=== PATIENT | male | born 1975 | race Caucasian/White ===

== ENCOUNTER → 2018-02-15 12:54 | Outpatient (CLI) | payer MEDICAID, SELFPAY ==
--- NOTE | 2018-02-15 13:00 | CT_ITS ---
STUDY: CTA CHEST REASON FOR EXAM: Male, 42 years old. Thoracic aortic aneurysm RADIATION DOSAGE (If Supplied By Facility): CTDIvol = ( 15.07 ) mGy, DLP = ( 740.91 ) mGycm TECHNIQUE: The examination was performed with the intravenous administration of 100ML ml of Isovue 300 contrast material. Post-processing of the angiographic images was performed, with multiplanar reformation and 3D reconstruction. Individualized dose optimization techniques were used for this CT. COMPARISON: None. FINDINGS: There are mild emphysematous changes noted in the lungs. There are no filling defects within the pulmonary arteries to suggest pulmonary embolus. There is a 4 mm nodule in the right upper lobe adjacent to the azygos vein (image 37 series 2). There are no additional pulmonary nodules or masses. There are no pulmonary infiltrates or pleural effusions. There is no pneumothorax. There is no evidence of thoracic aortic dissection. There is a 3.7 x 3.5 x 3.1 cm saccular aneurysm arising from the proximal descending thoracic aorta. The thoracic aorta is otherwise normal in caliber. The heart and pericardium are within normal limits. There are coronary artery calcifications noted. There is no thoracic lymphadenopathy. Images through the upper abdomen demonstrate fatty infiltration of the liver. There are no destructive osseous lesions. CT/CTA Chest W/WO Contrast IMPRESSION: 3.7 x 3.5 x 3.1 cm saccular aneurysm arising from the proximal descending thoracic aorta. No evidence of pulmonary embolus. Mild emphysema. 4 mm nodule in the right lung. A follow-up CT in 6 months is recommended. Coronary artery disease. Fatty liver. Electronically Signed: Hung Hook, at 19:53 EDT Tel , Service support ,
== END ==
PROVIDERS: Family Provider Student in an Organized Health Care Education/Training Program; PCP Student in an Organized Health Care Education/Training Program; Visit Provider Student in an Organized Health Care Education/Training Program
DX: I71.2 Thoracic aortic aneurysm, without rupture (principal); S06.0X0A Concussion without loss of consciousness, initial encounter
CPT/HCPCS: 71275; Q9967

== ENCOUNTER → 2018-06-06 11:48 | Outpatient (CLI) | payer MEDICAID, SELFPAY ==
[2018-06-06 12:31] LABS: Amphetamine Urine VISTA NEGATIVE (<1000 ng/mL); Barbiturate Urine VISTA NEGATIVE (< 200 ng/mL); Benzodiazepine Urine VISTA NEGATIVE (< 200 ng/mL); Cocaine Urine VISTA NEGATIVE (< 300 ng/mL); Ecstacy Urine VISTA NEGATIVE (< 500 ng/mL); Methadone Urine VISTA NEGATIVE (< 300 ng/mL); PCP Urine VISTA NEGATIVE (< 25 ng/mL); THC Urine VISTA NEGATIVE (< 50 ng/mL); Vista UDS pH Range 5
== END ==
PROVIDERS: Family Provider Student in an Organized Health Care Education/Training Program; PCP Student in an Organized Health Care Education/Training Program; Referring Provider Anesthesiology Pain Medicine; Visit Provider Anesthesiology Pain Medicine
DX: F11.20 Opioid dependence, uncomplicated (principal)
CPT/HCPCS: 80307

== ENCOUNTER 2019-05-23 09:31 | Day surgery (SDC) | payer MEDICARE, MEDICAID, SELFPAY ==
[2019-05-23 10:19] VITALS: BP 156/83; PULSE 91; RESP 18; TEMP 37.2; O2SAT 100; BMI 36.3
[2019-05-23] MEDS: Lactated Ringers 1,000 ML 100 ML IV ×2 (11:00→13:10)
--- NOTE | 2019-05-23 11:00 | RAD_ITS ---
PROCEDURE: DATE OF EXAMINATION: 05/23/2019 INDICATION: Male, 44 years old. Fluoroscopy for pain pump insertion PHYSICIAN: Dr. Vann FLUOROSCOPY TIME (if supplied): (0:10) minutes/seconds RADIATION DOSAGE (If Supplied By Facility): 1 fluoroscopy filming and 3 seconds of fluoroscopy A single lateral C-arm fluoroscopic image was performed showing a metallic lead in the posterior spinal canal of the lumbar spine with pedicle screws in place at the L4 level from a spinal fusion lower lumbar spine. RAD/Spine 1 View Any Level IMPRESSION: A metallic lead from a spinal fusion is noted of the lower lumbar spine. Electronically Signed: Rashaun Alcala, at 14:07 EDT Tel , Service support ,
[2019-05-23] MEDS: Cefazolin 2 GM in 0.9% Normal Saline 100 ML IV (11:38)
[2019-05-23] MEDS: 0.9% Normal Saline (Pres. free 10 ML Vial (12:00)
[2019-05-23] MEDS: Bupivacaine 0.25% 30 ML Vial (12:00)
[2019-05-23 12:50] VITALS: BP 156/83; BP 169/98; PULSE 115; RESP 16; TEMP 36.7; O2SAT 98
[2019-05-23 13:00] VITALS: BP 156/83; BP 162/104; PULSE 102; RESP 16; O2SAT 97
[2019-05-23 13:15] VITALS: BP 144/75; BP 156/83; PULSE 98; RESP 16; O2SAT 97
[2019-05-23 13:30] VITALS: BP 135/75; BP 156/83; PULSE 100; RESP 16; TEMP 36.8; O2SAT 96
[2019-05-23 14:15] VITALS: BP 156/83
== END 2019-05-23 14:35 | disposition home or self-care (01) ==
LOC: SDC 09:34 → AC 09:56
PROVIDERS: Family Provider Student in an Organized Health Care Education/Training Program; PCP Student in an Organized Health Care Education/Training Program; Referring Provider Anesthesiology Pain Medicine; Visit Provider Anesthesiology Pain Medicine
PROC: (CPT 62362; principal; 2019-05-23 10:45)
DX: G89.4 Chronic pain syndrome (principal); M96.1 Postlaminectomy syndrome, not elsewhere classified; M54.17 Radiculopathy, lumbosacral region; M51.37 Other intervertebral disc degeneration, lumbosacral region; M19.90 Unspecified osteoarthritis, unspecified site; I10 Essential (primary) hypertension; Z79.891 Long term (current) use of opiate analgesic; Z87.891 Personal history of nicotine dependence
CPT/HCPCS: 00300; 62362; 72020; 76000; J7120; J2274; J2405; J3490

== ENCOUNTER → 2022-06-21 | Outpatient (CLI) | payer MEDICARE, MEDICAID, SELFPAY ==
--- NOTE | 2022-06-21 14:06 | CT_ITS ---
STUDY: CT LUMBAR SPINE WITHOUT CONTRAST REASON FOR EXAM: Male, 47 years old. M96.1 RADIATION DOSAGE (If Supplied By Facility): CTDIvol = ( 41.81 ) mGy, DLP = ( 1580.91 ) mGycm TECHNIQUE: The patient was scanned in a multi detector CT scanner. High resolution transaxial imaging was performed. Images were obtained from to . Sagittal and coronal images were reconstructed. Individualized dose optimization techniques were used for this CT. COMPARISON: None FINDINGS: Normal lumbar lordosis. There is no substantial scoliosis. Normal vertebrae of the lumbar spine. L1-2: Narrowed disc space and minor endplate spurring. No focal disc protrusion.. Normal bilateral facet joints. Normal central canal and bilateral lateral recesses. Normal bilateral intervertebral neural foramina. L2-3: Normal endplates. Normal disc height and morphology. Normal bilateral facet joints. Normal central canal and bilateral lateral recesses. Normal bilateral intervertebral neural foramina. L3-4: Grade 1 retrolisthesis Narrowed disc space with intervertebral disc degeneration and mild bulging disc osteophyte complex. Facet arthropathy.. Moderate narrowing of the central canal, bilateral lateral recesses and neuroforamina exaggerated by shortened pedicles L4-5: Postop change status post bilateral laminectomy posterior fusion. Narrowed disc space and minor right posterolateral/foraminal osteophyte protrusion. Facet arthropathy more severe on the right. Normal central canal and bilateral lateral recesses. Mild left neuroforaminal stenosis and more severe narrowing on the right L5-S1: Status post bilateral laminectomy and posterior fusion with disc spacer placement.. Normal central canal and bilateral lateral recesses. Severe bilateral neuroforaminal stenosis secondary to bony hypertrophy exaggerated by shortened pedicles Spinal stimulator noted entering the spinal canal at L5-S1 extending cephalad to the level of the thoracolumbar junction Normal visualized paraspinous soft tissue structures. CT/Spine Lumbar without Contrast IMPRESSION: Postsurgical changes at L4-5 and L5-S1. No acute fracture or other significant bony pathology. Spinal stenosis at L3-4, L4-5 and L5-S1 primarily due to bony hypertrophy. Findings as above Electronically Signed: Frederick Hastings MD at 22:40 EST ,
== END | disposition home or self-care (01) ==
LOC: CT 14:00
PROVIDERS: PCP Student in an Organized Health Care Education/Training Program; Referring Provider Anesthesiology Pain Medicine; Visit Provider Anesthesiology Pain Medicine
DX: M96.1 Postlaminectomy syndrome, not elsewhere classified (principal)
CPT/HCPCS: 72131